=== PATIENT | female | born 1985 | race Caucasian/White ===

== ENCOUNTER 2018-06-12 20:54 | Emergency (ER) | payer OTHER ==
--- NOTE | 2018-06-12 21:23 | ED Physician Documentation ---
PD HPI LOWER EXT INJURY - Stated complaint Stated Complaint: LEFT ANKLE INJURY - Chief complaint Chief Complaint: Ext Problem - History obtained from History obtained from: Patient - History of Present Illness PD HPI LOW EXT INJURY LOCATION: Left, Ankle Type of injury: Twist (She was standingOn both feet and had a twist as she turned from just a standing position and felt a twisting and pop and pain in her ankle. She states it did feel like it rolled. She continued with some pain after that and then developed swelling soon after. Her pain with weightbearing increased and she is now only able to toe stand. Direct pressure on her heel causes pain in the ankle. Any pivoting motion causes pain.) Where injury occurred: Home Timing - onset: How many hours ago (few), Today Timing - details: Abrupt onset, Still present Worsened by: Moving, Other (standing flat foot) Associated symptoms: Numbness (feels numb on lateral ankle in area of swelling), Swelling. No: Weakness Similar symptoms before: Has not had sx before Recently seen: Not recently seen Review of Systems Skin: denies: Abrasion (s), Laceration (s) Musculoskeletal: reports: Joint swelling Neurologic: reports: Numbness. 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 - Present Medications Home Medications: Ambulatory Orders Medication Instructions Recorded Confirmed Etonogestrel [Nexplanon] 68 mg SQ 06/12/18 - Allergies Allergies/Adverse Reactions: Allergies Allergy/AdvReac Type Severity Reaction Status Date / Time No Known Drug Allergies Allergy Verified 06/12/18 21:01 - Social History Does the pt smoke?: No Smoking Status: Never smoker Does the pt drink ETOH?: No Does the pt have substance abuse?: No PD ED PE NORMAL - Vitals Vital signs reviewed: Yes - General General: Alert and oriented X 3, Well developed/nourished - Derm Derm: Normal color, Warm and dry - Extremities Extremities: Other (She has tenderness along the lateral malleolus in the anterolateral foot. There is mild to moderate effusion. The medial aspect is minimally tender. The Achilles is firm and not tender. She is able to plantarflex. Passive range of motion of the ankle hurts for inversion. Active range of motion of the ankle hurts in most directions. She does not have any tenderness in the foot. Is normal color and capillary refill in the toes as well as sensation.) - Neuro Neuro: No motor deficit, No sensory deficit Results - Vitals Vitals: Vital Signs - 24 hr 06/12/18 20:59 Temperature 37 C Heart Rate 109 H Respiratory 18 Rate Blood Pressure 117/62 O2 Saturation 100 Oxygen O2 Source Room air - Rads (name of study) left ankle xray Radiology: Prelim report reviewed (no fractures), EMP read contemporaneously, See rad report PD MEDICAL DECISION MAKING - ED course Complexity details: reviewed results, considered differential, d/w patient Departure - Departure Disposition: Home, Self Care Clinical Impression: Ankle sprain Qualifiers: Encounter type: initial encounter Involved ligament of ankle: anterior talofibular ligament Laterality: left Qualified Code(s): S93.492A - Sprain of ot her ligament of left ankle, initial encounter Condition: Stable Record reviewed to determine appropriate education?: Yes Instructions: ED Sprain Ankle Comments: Ibuprofen or naproxen 2-3 times a day for pain and inflammation. Ice and elevate and rest the ankle often the next couple of days to reduce swelling. Use the ankle brace when up and around for the next 1 or 2 weeks until the ankle feels really sturdy and improved. Initially use crutches for nonweightbearing and progress weightbearing as able once the swelling and pain are down. Recheck if not well improving over the next week and mostly all improved within a couple of weeks. Your x-ray appears normal without any signs of fracture. Rarely they can be occult fractures and so if it is not improving at all over the next week, to follow-up with your primary care. Discharge Date/Time: 06/12/18 21:51
[2018-06-12 21:27] VITALS: BP 117/62
--- NOTE | 2018-06-12 21:28 | XRAY Report ---
Reason: injury, unable to bear weight, foot numb Procedure Date: 06/12/2018 Accession Number: [id number] / [id number] Procedure: XR - Ankle 3 View LT CPT Code: FULL RESULT: EXAM: LEFT ANKLE RADIOGRAPHY EXAM DATE: 06/12/2018 09:12 PM. CLINICAL HISTORY: Injury, unable to bear weight, foot numb. COMPARISON: None. TECHNIQUE: 3 views. FINDINGS: Bones: No fracture or focal bony lesion. Joints: No evidence of dislocation. Soft Tissues: No unexpected soft tissue findings. IMPRESSION: No evidence of fracture or dislocation. RADIA
[2018-06-12] MEDS ORDERED: IBUPROFEN 600 MG TABLET PO STA (21:35)
== END 2018-06-12 21:51 | disposition home or self-care (01) ==
LOC: ED 20:54
DX: S93.492A Sprain of other ligament of left ankle, initial encounter (principal); X50.1XXA Overexertion from prolonged static or awkward postures, initial encounter; Y92.009 Unspecified place in unspecified non-institutional (private) residence as the place of occurrence of the external cause
CPT/HCPCS: 73610; 99283; A9270

== ENCOUNTER 2022-12-13 12:01 | Emergency (ER) | payer OTHER ==
[2022-12-13 12:30] VITALS: O2SAT 100
--- NOTE | 2022-12-13 15:03 | ED Physician Documentation ---
History of Present Illness - Stated complaint Stated Complaint: SWELLING/REACTION - Chief complaint Chief Complaint: Allergic Rx - History obtained from History obtained from: Patient - Additonal information Additional information: This is a 37-year-old female who presents with urticarial rash which she noticed yesterday along with joint pain and swelling in the ankles, wrists and knees bilaterally. The patient does not have any history of rheumatologic disease. She states she took Benadryl for her rash and it has mostly improved her ankle swelling is starting to improve as well. Her concern that brought her to the ER however was that she also had some painful swallowing. States it did not feel like a sore throat like with the cold but it was uncomfortable to swallow. This has improved as well. She did not notice any oral rashes lesions tonsillar swelling, no lip or tongue swelling. She denies any new foods, soaps lotions or detergents. The patient states she does have a history of quite significant skin sensitivities as well as gluten intolerance and He is very careful about what she eats and what products she uses due to her sensitivity. She denies any known irritant contacts. 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 She is on her feet all day and states quite a bit of stress in the last few days which she thought perhaps was contributing. No history of rheumatologic disease, no recent bites or stings no history of Lyme disease, no recent international travel. Review of Systems Constitutional: reports: Reviewed and negative. denies: Fever, Chills, Myalgias, Fatigue, Weight Loss, Sweats, Other Eyes: reports: Reviewed and negative Ears: reports: Reviewed and negative Nose: reports: Reviewed and negative Throat: reports: Sore throat. denies: Dental pain / toothache, Oral lesions / sores, Swollen tonsils, Swallowed foreign body Cardiac: reports: Reviewed and negative Respiratory: reports: Reviewed and negative GI: reports: Reviewed and negative : reports: Reviewed and negative Skin: reports: Rash. 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 - Present Medications Home Medications: Ambulatory Orders Medication Instructions Recorded Confirmed Multivitamin 1 each PO DAILY 12/13/22 12/13/22 Luckey-3/Dha/Epa/Fish Oil [Fish Oil 1,000 mg PO DAILY 12/13/22 12/13/22 1,000 mg Softgel] - Allergies Allergies/Adverse Reactions: Allergies Allergy/AdvReac Type Severity Reaction Status Date / Time No Known Drug Allergies Allergy Verified 12/13/22 12:23 - Social History Does the pt smoke?: No Smoking Status: Never smoker Does the pt drink ETOH?: No Does the pt have substance abuse?: No - Immunizations Immunizations are current?: Yes PD ED PE NORMAL - Vitals Vital signs reviewed: Yes - General General: Alert and oriented X 3, No acute distress, Well developed/nourished - HEENT HEENT: Atraumatic, Moist mucous membranes, Pharynx benign, Other (No oral lesions, no lip or tongue swelling, tonsils 1+ and symmetric bilaterally without exudate) - Neck Neck: Supple, no meningeal sign, No adenopathy - Cardiac Cardiac: RRR, No murmur - Respiratory Respiratory: No respiratory distress, Clear bilaterally - Derm Derm: Normal color, Warm and dry, Other (Photo of rash consistent with urticaria though this has improved.) - Extremities Extremities: Other (Mild ankle and wrist swelling bilaterally, no erythema. Able to flex and extend no uncomfortable) - Neuro Neuro: Alert and oriented X 3 Eye Opening: Spontaneous Motor: Obeys Commands Verbal: Oriented GCS Score: 15 - Psych Psych: Normal mood, Normal affect Results - Vitals Vitals: Vital Signs - 24 hr 12/13/22 12/13/22 12:25 15:18 Temperature 37.2 C 37.4 C Heart Rate 127 H 92 Respiratory 20 16 Rate Blood Pressure 134/80 H 106/75 O2 Saturation 100 100 Oxygen O2 Source Room air PD Medical Decision Making - ED course Complexity details: re-evaluated patient, considered differential, d/w patient ED course: 29-year-old female presented with urticarial rash as well as some joint pain and throat pain since yesterday. She also had a sore throat though no oropharyngeal swelling. Patient is well-appearing here on physical exam, initially quite tachycardic but that resolved after she was brought back to her room, she is not febrile here And I have low suspicion for sepsis. She did have an urticarial rash based on pictures though it has mostly resolved, she has trace ankle swelling bilaterally and swelling bilaterally but no signs of joint erythema to suggest gout or an Infectious arthritis. She has no oral or visible pharyngeal Swelling redness or redness and I see no oral lesions. The patient has no change in voice or respiratory distress or stridor to suggest a upper airway swelling or obstruction. She does not have any signs of strep throat.I discussed at length with patient that she may have a rheumatologic issue such as rheumatoid arthritis, or other inflammatory arthritis and I did offer labs however patient plans to wait follow-up with her PCP so she can potentially get rheumatologic markers at the same time. She was also concerned about possible Lyme disease which I advised they typically do not check for here in the ER. She was encouraged to continue NSAIDs and she can take Tylenol as needed for pain. I offered short course of prednisone but pt would like to hold off for now. She did take Benadryl which was effective at improving her urticarial rash and advised she could continue that plus or minus famotidine as needed. Patient states understanding and was discharge home in stable condition. Departure - Departure Disposition: 01 Home, Self Care Clinical Impression: Allergic urticaria, Joint swelling Condition: Good Instructions: ED Urticaria Comments: I am unsure what caused your joint swelling. I would like you to see your primary doctor in the next week or so, consider rheumatologic labs for this. In the meantime you can take ibuprofen as needed, try to keep legs elevated whenever possible and return if you develop a fever, increasing pain and redness, or other new concerns. For your hives, you can continue Benadryl as needed and add [id number] famotidine to help as a histamine aron. Forms: PCP List Discharge Date/Time: 12/13/22 15:21
[2022-12-13 15:25] VITALS: BP 106/75
== END 2022-12-13 15:21 | disposition home or self-care (01) ==
LOC: ED 12:01
DX: L50.0 Allergic urticaria (principal); M25.472 Effusion, left ankle; M25.471 Effusion, right ankle; M25.432 Effusion, left wrist; M25.431 Effusion, right wrist
CPT/HCPCS: 99282; 99283